=== PATIENT | female | born 1960 | race Caucasian/White ===

== ENCOUNTER 2018-08-26 16:13 | Emergency (ER) ==
[2018-08-26 16:21] VITALS: TEMP 98.7; BMI 30.7
[2018-08-26 16:52] VITALS: BP 134/96
--- NOTE | 2018-08-26 18:06 | ED.PDOC ---
General ED Provider: Dr. MASHA DEL VALLE Chief Complaint: Chest Pain Stated Complaint: chest pain Time Seen by Physician: 16:16 (intermittent chest pain x 2 days ) Mode of Arrival: Walk-In Information Source: Patient Exam Limitations: No limitations Primary Care Provider: OLGA FOOTE Referred to ED by: Other (seen with ria simmons pt stated that she would not be admitted to nature of chest pain i told the pt she would most benefit from admission and further work up . pt is refusing) Nursing and Triage Documentation Reviewed and Agree: Yes Does patient meet sepsis criteria?: No System Inflammatory Response Syndrome: Not Applicable Sepsis Protocol: For patient's 13 years and over: Temp is 96.8 and below OR 101 and greater Pulse >90 BPM Resp >20/minute Acutely Altered Mental Status Are patient's symptoms suggestive of a new infection, such as: -Pneumonia -Skin, Soft Tissue -Endocarditis -UTI -Bone, Joint Infection -Implantable Device -Acute Abdominal Infection -Wound Infection -Meningitis -Blood Stream Catheter Infection -Unknown Cardiovascular Complaint Exam - Chest Pain Complaint/Exam Onset: Gradual Duration: 2 days Symptoms Are: Resolved Timing: Intermittent Length of Chest Pain Episodes: 20 min Initial Severity: Mild Current Severity: None Location: Reports: Midsternal Pain Radiates: Reports: None Character: Reports: Dull Aggravating: Reports: None Alleviating: Reports: None Associated Signs and Symptoms: Denies: Diaphoresis, Nausea, Vomiting, Fever, Palpitations, Cough, Hemoptysis, Back pain, Abdominal pain, Dizziness, Short of air, Calf pain, Calf swelling Related History: Reports: Similar episode Review of Systems - Review Of Systems Constitutional: Reports: No symptoms Eyes: Reports: No symptoms Ears, Nose, Mouth, Throat: Reports: No symptoms Respiratory: Reports: No symptoms Cardiac: Reports: Chest pain GI: Reports: No symptoms : Reports: No symptoms Musculoskeletal: Reports: No symptoms Skin: Reports: No symptoms Neurological: Reports: No symptoms Endocrine: Reports: No symptoms Hematologic/Lymphatic: Reports: No symptoms All Other Systems: Reviewed and Negative Past Medical History - Past Medical History Previously Healthy: Yes Endocrine: Reports: Dyslipidemia Cardiovascular: Reports: None Respiratory: Reports: None Hematological: Reports: None Gastrointestinal: Reports: None Genitourinary: Reports: None Neuro/Psych: Reports: None Musculoskeletal: Reports: None Cancer: Reports: None Last Menstrual Period: menopause - Surgical History General Surgical History: Reports: None - Family History Family History: Reports: None - Social History Smoking Status: Never smoker Hx Substance Use: No Alcohol Screening: None Physical Exam - Physical Exam Appearance: Well-appearing, No pain distress, Well-nourished Eyes: ZACKARY, EOMI, Conjunctiva clear ENT: Ears normal, Nose normal, Oropharynx normal Respiratory: Airway patent, Breath sounds clear, Breath sounds equal, Respirations nonlabored Cardiovascular: RRR, Pulses normal, No rub, No murmur GI/: Soft, Nontender, No masses, Bowel sounds normal, No Organomegaly Musculoskeletal: Normal strength, ROM intact, No edema, No calf tenderness Skin: Warm, Dry, Normal color Neurological: Sensation intact, Motor intact, Reflexes intact, Cranial nerves intact, Alert, Oriented Psychiatric: Affect appropriate, Mood appropriate Interpretation - [employer] Rate: Normal Rhythm: Sinus Ectopy: None - EKG Interpretation Rate: Normal Rhythm: Sinus Ectopy: None [place]: NL ST Segment: Normal Re-Evaluation - Re-Evaluation Time of Re-Evaluation: 18:06 Status: Improved Vital Signs Stable: Yes Pain Level: 0 Appearance: NAD Lungs: Clear Skin: Warm and Dry Neuro: Alert and Oriented X3 CV: RRR Critical Care Note - Critical Care Note Total Time (mins): 0 Course - Course Hematology/Chemistry: 08/26/18 17:03 08/26/18 17:03 Orders, Labs, Meds: Lab Review 08/26/18 08/26/18 08/26/18 17:03 17:03 17:03 WBC 6.04 RBC 4.08 L Hgb 13.1 Hct 37.7 MCV 92.4 MCH 32.1 H MCHC 34.7 RDW Coeff of Arnold 11.7 Plt Count 216 Immature Gran % (Auto) 0.0 Neut % (Auto) 49.6 Lymph % (Auto) 39.4 Rhea % (Auto) 7.3 Eos % (Auto) 2.5 Baso % (Auto) 1.2 Immature Gran # (Auto) 0.0 Neut # (Auto) 3.0 Lymph # (Auto) 2.4 Rhea # (Auto) 0.4 Eos # (Auto) 0.2 Baso # (Auto) 0.1 D-Dimer (Manual) 223.14 Sodium 140.3 Potassium 4.00 Chloride 104.5 Carbon Dioxide 27.4 Anion Gap 12.40 BUN 11.6 Creatinine 0.65 Estimated GFR (MDRD) 94.00 BUN/Creatinine Ratio 17.84 Glucose 90.9 Calcium 9.03 Total Bilirubin 0.35 AST 20.3 ALT 18.6 Alkaline Phosphatase 67.0 Total Creatine Kinase 91.9 Troponin I < 0.012 Total Protein 6.99 Albumin 4.59 Globulin 2.40 Albumin/Globulin Ratio 1.91 Orders Category Date Time Status EKG-(ED ONLY) Stat CARDIO 08/26/18 16:53 Completed EKG-(ED ONLY) Stat CARDIO 08/26/18 18:15 Ordered CBC W/ AUTO DIFF Stat LAB 08/26/18 17:03 Completed COMPREHENSIVE METABOLIC PANEL Stat LAB 08/26/18 17:03 Completed CREATINE KINASE Stat LAB 08/26/18 17:03 Completed D-DIMER Stat LAB 08/26/18 17:03 Completed TROPONIN I Stat LAB 08/26/18 17:03 Completed CHEST, 2 VIEWS PA & LAT Stat RADS 08/26/18 16:54 Ordered Vital Signs: Temp Pulse Resp BP Pulse Ox 08/26/18 16:51 68 17 134/96 H 99 08/26/18 16:13 98.7 F 78 16 143/97 H 0 L ALYSON Risk Score ALYSON Risk Score: Risk Score Odds of by 30D 0 0.1 (0.1-0.2) 1 0.3 (0.2-0.3) 2 0.4 (0.3-0.5) 3 0.7 (0.6-0.9) 4 1.2 (1.0-1.5) 5 2.2 (1.9-2.6) 6 3.0 (2.5-3.6) 7 4.8 (3.8-6.1) Departure - Departure Time of Disposition: 19:00 (WITH ROXIE PRESENT DISCUSSED ADMISSION PT STATED SHE CAN NOT BE ADMITTED RISKS DISCUSSED SHE UNDERSTOOD THEM AND DECLINED ADMIT) Disposition: AMA Discharge Problem: Chest pain Instructions: Angina (ED), Angina (DC), Chest Pain (ED) Condition: Good Pt referred to PMD for follow-up: Yes IPMP verified?: No Additional Instructions: Please call your Family Physician as soon as possible to schedule a follow-up appointment. Allergies/Adverse Reactions: Allergies No Known Allergies Allergy (Unverified 08/26/18 16:23) Home Medications: Ambulatory Orders Cephalexin [Keflex] 500 mg PO Q6HR 08/26/18 Estradiol 1 each TD DAILY 08/26/18 L.acidoph,Paracasei, B.lactis [Probiotic] 1 each PO DAILY 08/26/18 Loratadine 10 mg PO DAILY 08/26/18 Medroxyprogesterone Acetate 2.5 mg PO DAILY 08/26/18 Pravastatin Sodium 80 mg PO DAILY 08/26/18 Disposition Discussed With: Patient
--- NOTE | 2018-08-26 19:08 | DI ---
EXAM: PA and lateral views of the chest HISTORY: Chest pain COMPARISON: None FINDINGS: Lungs are clear with no lobar consolidation, failure, large effusion or significant atelec tasis. Cardiac and mediastinal silhouettes show no acute abnormality. No acute osseous or soft tiss ue abnormalities. IMPRESSION: No active disease.
== END 2018-08-26 18:25 | disposition left against medical advice (07) ==
LOC: ED 16:13
DX: R07.9 Chest pain, unspecified (principal); E78.5 Hyperlipidemia, unspecified
CPT/HCPCS: 36415; 80053; 82550; 84484; 85025; 85379; 93005; 93010; 99284